=== PATIENT | female | born 1970 | race Caucasian/White ===

== ENCOUNTER 2019-09-24 16:42 | Emergency (ER) | payer BC, SELFPAY ==
--- NOTE | 2019-09-24 17:01 | ECG_ITS ---
Measurements Intervals Icard Rate: 96 P: 69 OK: 145 QRS: -4 QRSD: 90 T: 40 QT: 352 QTc: 445 Interpretive Statements SINUS RHYTHM BASELINE WANDER- V5 NORMAL ECG Electronically Signed On 09-24-2019 18:20:37 CDT by Shahram Jenkins D.O.
[2019-09-24 17:07] VITALS: BP 163/89; PULSE 97; RESP 12; TEMP 36.9; O2SAT 97
--- NOTE | 2019-09-24 17:20 | ED.GENADULT ---
HPI - General Adult General Chief complaint: Headache Stated complaint: HTN/MCCALLUM Time Seen by Provider: 09/24/19 17:01 History of Present Illness HPI narrative: Patient presents with chief complaint of headaches the crown of her head and elevated blood pressure that was noted at 190/120 while at work at [employer]. Patient reports that she has had a dull throbbing headache to the crown of her head over the past 2 days. Patient states today she took a Zyrtec for her allergies, wondering if that was a part of her headache. Patient denies a history of hypertension. Patient denies any neurological deficits, changes to vision or hearing, changes in speech, weakness, lethargy, syncope, nausea, vomiting, diarrhea, fever, shortness of breath, chest pain, abdominal pain, inability to urinate. Patient states that she became very scared and EMS was called. Patient states that she was tested last week for COVID as there are multiple cases and a [facility] [place] and her results were negative. Patient denies having any symptoms of COVID. Patient PCP is Dr Dugan. Related Data Home Medications Medication Instructions Recorded Confirmed Connie Allergy 09/24/19 hydrocodone-acetaminophen [Whitney] 1 tablet PO Q6H PRN 09/24/19 Allergies Allergy/AdvReac Type Severity Reaction Status Date / Time No Known Allergies Allergy Verified 09/24/19 17:16 Review of Systems Review of Systems: Narrative: CONSTITUTIONAL: Denies fever, chills, or sweats. EYES: Denies visual changes, redness, or discharge. ENT: Denies rhinorrhea, congestion, sore throat, or otalgia. CARDIOVASCULAR: Denies chest pain, palpitations, or edema. RESPIRATORY: Denies cough or dyspnea. GASTROINTESTINAL: Denies abdominal pain, nausea, vomiting, or diarrhea. GENITOURINARY: Denies dysuria or hematuria. SKIN: Denies rash or itching. MUSCULOSKELETAL: Denies back pain, joint pain, or myalgia. NEUROLOGIC: Reports headache, denies numbness, dizziness, or weakness. PSYCHIATRIC: Denies anxiety or depression. [facility] Past Medical History Medical History (Updated 09/24/19 @ 20:13 by Aurelio Damon PA-C) Seasonal allergies Social History Social History Gender identity (if verbalized by the patient): Female Exam Narrative: Exam Narrative: GENERAL: Well-appearing, well-nourished, and in no acute distress. HEAD: Normocephalic, atraumatic. No asymmetry noted to face. EYES: PERRLA and EOMI. ENT: Nares clear, no rhinorrhea or epistaxis. Mucous membranes moist. Oropharynx without tonsillar hypertrophy exudate or other lesions. Bilateral TMs pearly nance nonbulging NECK: Supple. No adenopathy or masses. No carotid bruits or JVD CHEST: Clear to auscultation. No respiratory distress. No wheezes rales or rhonchi HEART: Regular rate and rhythm. No murmur heard. Normal peripheral pulses. ABDOMEN: Soft, nontender, nondistended, normal active bowel sounds. EXTREMITIES: Normal range of motion. No edema. SKIN: Warm, dry, no rash. NEURO: No focal deficits. Alert and oriented x3. Range of motion and sensation intact upper and lower extremities. speech is clear and appropriate. PSYCH: Normal mood and affect. Course Course Emergency Course: Patient B/P 147/69 pulse 99. Patient reports dull throbbing pressure to crown of head. No SOB, CHEST PAIN, NVD, has been eating drinking and urinating well today. No fever, chills, cough, loss of taste or smell. No visual , auditory, neurological deficits at this time. Vital Signs Vital signs: Vital Signs Temperature 98.4 F 09/24/19 17:07 Pulse Rate 97 09/24/19 17:07 Respiratory Rate 12 09/24/19 17:07 Blood Pressure 163/89 H 09/24/19 17:07 Pulse Oximetry 97 09/24/19 17:07 Temperature 98.4 F 09/24/19 17:07 Pulse Rate 92 09/24/19 19:30 Respiratory Rate 18 09/24/19 19:30 Blood Pressure 118/53 L 09/24/19 19:30 Pulse Oximetry 98 09/24/19 19:30 Medical Decision Making MDM Narrative Medical decisi
[2019-09-24 17:28] LABS: Basophils Percent Auto 0.5 % (0.2-1.2); Eosinophils Absolute Auto 0.1 K/mm3 (0-0.3); Eosinophils Percent Auto 0.9 % (0-4.4); Hematocrit 42.6 % (37.0-47.0); Immature Granulocyte Absolute 0.03 K/mm3 (0.00-0.031); Immature Granulocyte Percent A 0.3 % (0-0.5); Lymphocytes Absolute Auto 1.83 K/mm3 (0.9-3.2); Lymphocytes Percent Auto 20.6 % (18.3-44.2); Mean Corpuscular HGB Conc 32.9 g/dl (32-36); Mean Corpuscular Hemoglobin 31.4 pg (26-34); Mean Corpuscular Volume 95.5 fl (80-100); Mean Platelet Volume 10.6 fl (7.4-10.4); Monocytes Absolute Auto 0.6 K/mm3 (0.1-0.6); Monocytes Percent Auto 6.4 % (2.6-8.5); Neutrophils Absolute Auto 6.3 K/mm3 (1.3-6.7); Neutrophils Percent Auto 71.3 % (45.5-73.1); Platelet Count Result 234 k/mm3 (150-375); Red Blood Count 4.46 M/mm3 (4.2-5.4); Red Cell Distribution Width 12.2 % (11.5-14.5); White Blood Count 8.9 K/mm3 (4.5-10.0)
[2019-09-24 17:40] LABS: Alanine Aminotransferase 17 U/L (4-35); Albumin Level 4.4 g/dL (3.5-5.1); Alkaline Phosphatase 86 U/L (38-126); Aspartate Amino Transferase 25 U/L (14-36); Bilirubin,Total 0.2 mg/dL (0.2-1.3); Blood Urea Nitrogen 18 mg/dL (7-17); Calcium 9.5 mg/dL (8.4-10.2); Carbon Dioxide 24 mmol/L (22-30); Chloride 105 mmol/L (98-107); Estimated CRCL calculation 79 ml/min; Estimated Glomerular Filt Rate > 60; Glucose 115 mg/dL (65-105); Potassium 3.7 mmol/L (3.4-5.0); Sodium 137 mmol/L (137-145)
[2019-09-24 18:37] VITALS: BP 133/89; PULSE 97; O2SAT 98
[2019-09-24 18:57] LABS: Add Urine Microscopic? YES; Appearance Urine Cloudy (Clear); Bacteria Urine Trace /hpf; Bilirubin Urine Negative (Negative); Blood Urine Negative (Negative); Color Urine Straw (Yellow); Glucose Urine UA Negative (Negative); Ketones Urine Negative (Negative); Leukocyte Esterase Ur Trace LEU/UL (Negative); Nitrate Urine Negative (Negative); Protein Urine Negative (Negative); Specific Grav Ur 1.012 (1.001-1.035); Squamous Epithelial Cell Urine Many /hpf (Few); Urobilinogen Urine Negative mg/dL (<2.0); WBC Urine 0-3 /hpf
[2019-09-24 19:30] VITALS: BP 118/53; PULSE 92; RESP 18; O2SAT 98
== END 2019-09-24 20:23 | disposition home or self-care (01) ==
PROVIDERS: Physician Assistant; Emergency Provider Emergency Medicine
DX: R03.0 Elevated blood-pressure reading, without diagnosis of hypertension (principal)
CPT/HCPCS: 36415; 80053; 81001; 81025; 85025; 93005; 99283